=== PATIENT | female | born 1945 | race Caucasian/White ===

== ENCOUNTER 2017-01-10 11:23 | Inpatient (IN) | payer OTHER, MEDICARE ==
--- NOTE | ~2017-01-10 | OR ---
Unit #: [id number] #: [id number] Patient: SELENA AZUL [id number] [address] [place], [place] [address] [id number] MR#: [id number] NAME: SELENA AZUL ROOM: [facility] Date of Procedure: 01/10/2017 Admission Date: 01/10/2017 Surgeon: Carolina Rivera M.D. : 1945 Attending Physician: Carolina Rivera M.D. Primary Care Physician: Jami Mueller A.P.R.N. OPERATIVE REPORT PREOPERATIVE DIAGNOSIS Left ankle degenerative arthritis. POSTOPERATIVE DIAGNOSIS Left ankle degenerative arthritis. PROCEDURE PERFORMED Left total ankle arthroplasty (64073). CERTIFIED GENETIC COUNSELOR MD Barak. ANESTHESIA Popliteal saphenous block and general. INDICATIONS FOR SURGERY The patient is a 71-year-old female with end-stage left ankle arthritis unresponsive to conservative care. She is admitted for elective total ankle replacement. The risks and benefits of fusion versus replacement have been discussed. She elects to proceed with ankle replacement. DESCRIPTION OF PROCEDURE The patient underwent left popliteal saphenous block. She was taken to the operating room, and placed into the supine position. General anesthetic was induced. The left ankle was identified as the correct operative location during the time-out procedure. The IV antibiotic protocol was followed. The left leg was then prepped and draped in the usual sterile fashion. The leg was exsanguinated and the thigh tourniquet inflated to 300 mmHg. An anterior longitudinal incision measuring 12 cm was made over the ankle. The subcutaneous tissue was carefully divided. The superficial peroneal nerve was identified and preserved. The extensor retinaculum was opened longitudinally. The interval between the extensor hallucis longus tendon and anterior tibial tendon was opened and the neurovascular bundle was retracted laterally. The joint was exposed with subperiosteal dissection. The power osteotome was then used to remove the large anterior distal tibial spur. The Michael Talaris total ankle replacement system was used for total ankle arthroplasty. The tibial alignment guide was pinned to the tibial tuberosity aligned with the tibial shaft and then pinned to the distal tibia. An 8 mm resection was set, rotation was set. The tibia and talus were both sized at a size 0. The medial lateral orientation of the Unit #: [id number] #: [id number] Patient: SLEENA AZUL cutting block was then adjusted under C-arm fluoroscopic control. The #0 tibial cutting block was applied. The three drill holes were placed medially and laterally and the tibial cut was made. The anterior half of the cut tibia was then removed in a piecemeal fashion. The talar pin setting guide was then used to place the pin in the talar neck. The posterior talar cutting guide was applied and pinned into place. The posterior talar cut was made. The remainder of the posterior cut tibial bone was then removed. The anterior talar cutting guide was then applied and pinned into place. The anterior talar neck was reamed. Finally, the lateral talar cutting guide was applied and pinned into place. Position was checked with C-arm fluoroscopy. The Mota saw was used and the lateral talar cut was made. The #0 talar trial fit appropriately. A trial reduction was then performed with an 8 mm thick spacer and 0 tibial trial. The three drill holes were placed in the distal tibia. These were then connected with a small chisel and a rasp. The wound was copiously irrigated. The final #0 talar implant was impacted into place. The 8 mm poly was then fixed to the #0 tibial implant. The tibial implant was impacted into place. Excellent fitting of the prosthesis was confirmed with C-arm fluoroscopy. There was no evidence of medial or lateral instability. Care was taken to ensure that the medial and lateral gutters were cleared of all osteophytes with a rongeur. A 3-minute dilute Betadine wash was then applied to the ankle. This was then lavaged out with normal saline. Tourniquet was released with a total tourniquet time of 55 minutes. The ankle joint capsule was closed with interrupted 2-0 Vicryl [id number]-[id number] sutures. The extensor retinaculum was closed with 2-0 Vicryl oadvin-gp-rsmmz sutures, subcutaneous tissue was closed with 3-0 Vicryl, and the skin was closed with 3-0 nylon horizontal mattress sutures. Xeroform gauze, dressing, sponges, Webril, and a posterior fiberglass splint were applied. The patient was then transported to the recovery room in stable condition. ESTIMATED BLOOD LOSS Minimal. COMPLICATIONS None. SPECIMENS None. TOURNIQUET TIME 55 minutes. Dictated by.Myke HoffmannH/martell TD: 01/10/2017 18:46 JOB #: [id number] Unit #: [id number] #: [id number] Patient: SELENA AZUL OPERATIVE REPORT X Nan Rivera MD X PROCEDURE OPERATIVE NOTE
--- NOTE | ~2017-01-10 | DS ---
Unit #: [id number] #: [id number] Patient: SELENA AZUL [id number] [address] [address] [id number] I MR#: [id number] NAME: SELENA AZUL ROOM: 455 Age: 71 Sex: F Admission Date: 01/10/2017 : 1945 Discharge Date: 01/12/2017 Attending Physician: Carolina Rivera M.D. Primary Care Physician: Jami Mueller A.P.R.N. DISCHARGE SUMMARY CHIEF COMPLAINT Left ankle pain. HISTORY OF PRESENT ILLNESS The patient is a 71-year-old female with endstage left ankle arthritis, unresponsive to conservative care. She was admitted for left total ankle arthroplasty. HOSPITAL COURSE The patient was taken to the operating room on the date of admission, where she underwent left total ankle arthroplasty without complication. She had a stable postoperative course. She was seen by physical therapy on a daily basis and instructed on how to remain nonweightbearing on the affected side. DVT prophylaxis was achieved with Xarelto. Dressing was changed on the second postoperative day and the wound is healing well. 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 She is ready for discharge on the second postoperative day. FINAL DIAGNOSES Left ankle arthritis. OPERATION PERFORMED Left total ankle arthroplasty on 01/09/2017. DISPOSITION/RECOMMENDATIONS 1. The patient is discharged home. 2. She is to keep the dressing clean, dry and intact. 3. Continue ice and elevation. 4. She will be nonweightbearing for two weeks. DISCHARGE MEDICATIONS 1. Home medications. 2. Xarelto 10 mg p.o. daily for 2 weeks. 3. Percocet 5/325 mg 1-2 p.o. q.4-6 h. p.r.n. pain, dispensed 40. FOLLOWUP Follow up in my office in 10-14 days for dressing change, stitch removal, application of a CAM boot. She can start weightbearing at that time. Dictated by.Marce Rivera M.D. Unit #: [id number] #: [id number] Patient: SELENA AZUL RTSeveriano/gz TD: 01/13/2017 09:01 JOB #: [id number] DISCHARGE SUMMARY X Nan Rivera MD DISCHARGE SUMMARY
--- NOTE | ~2017-01-10 | HP ---
Unit #: [id number] #: [id number] Patient: SELENA AZUL [id number] [address] [address] [id number] O MR#: [id number] NAME: SELENA AZUL ROOM: Age: Sex: F Admission Date: 01/10/2017 : 1945 Attending Physician: Carolina Rivera M.D. Primary Care Physician: Jami Mueller A.P.R.N. HISTORY AND PHYSICAL DATE OF ANTICIPATED ADMISSION/PROCEDURE January 10, 2017 CHIEF COMPLAINT Left ankle pain. HISTORY OF PRESENT ILLNESS The patient is a 71-year-old female with end-stage left ankle arthritis unresponsive to conservative care. She is admitted for ankle replacement. The risks and benefits of fusion versus replacement have been discussed. PAST MEDICAL HISTORY 1. Obesity. 2. Anemia. 3. Midfoot arthritis. 4. Asthma. 5. Hypertension. 6. Esophageal reflux. 7. Hyperlipidemia. 8. Hypothyroidism. 9. Knee arthritis. 10. Uterine cancer. 11. Allergic rhinitis. 12. Hypercholesterolemia. 13. Breast cancer. PAST SURGICAL HISTORY 1. Breast lumpectomy. 2. Oophorectomy. 3. Sinus surgery. 4. Total abdominal hysterectomy. CURRENT MEDICATIONS 1. Anastrozole. 2. Hydrochlorothiazide. 3. Levothyroxine. 4. Losartan. 5. Meloxicam. 6. Metoprolol. 7. Prilosec. 8. Symbicort. ALLERGIES None. Unit #: [id number] #: [id number] Patient: SELENA AZUL FAMILY HISTORY Breast cancer, arthritis, hypertension, asthma, COPD, cardiac disease. SOCIAL HISTORY Patient is a social user of alcohol. She is a former smoker with a 40 pack-year history. PHYSICAL EXAMINATION GENERAL: This is an obese female in no acute distress. HEENT: Pharynx is clear. NECK: Supple without masses. HEART: Regular sinus rhythm without murmurs or gallops. LUNGS: Clear. ABDOMEN: Soft and nontender without masses or organomegaly. EXTREMITIES: Evaluation of the left ankle demonstrates a normal arch. The hindfoot is in 5 degrees of valgus. Left ankle dorsiflexion zero and plantar flexion 30. Subtalar inversion is 5 degrees and eversion is 10 degrees. The patient has palpable midfoot arthritis. Pulses are palpated. Sensation is normal. Motor exam is normal. The patient is maximally tender over the anterior aspect of the tibiotalar joint. DIAGNOSTIC STUDIES IMAGING: Standing x-rays of the left ankle show complete symmetrical joint space loss of the ankle joint. ADMITTING DIAGNOSIS Left ankle degenerative arthritis. PLAN The patient has failed conservative care. She is therefore admitted for left total ankle arthroplasty using the Michael Talaris implant. This procedure was described, along with the risks of bleeding, infection, nerve damage, need for further surgery in the future, prolonged recovery time, deep venous thrombosis, pulmonary embolism, anesthetic complications, wound healing problems, loosening of the prosthesis, infection of the prosthesis, need for multiple revision surgeries to include ankle fusion. She understands the above risks and agrees to proceed with the treatment plan. She reviewed the operative permit and signed it in our office. Dictated by Myke Dixon/carie TD: 01/09/2017 20:18 JOB #: [id number] HISTORY AND PHYSICAL X Nan Rivera MD X HISTORY AND PHYSICAL
[~2017-01-10 11:23] MED LIST: ANASTROZOLE1 MG PO; B-12500 MCG PO; HYDROCHLOROTHIA25 MG PO; LOSARTAN POTASS25 MG PO; MELOXICAM15 MG PO; METOPROLOL SUCC50 MG PO; SYMBICORT INH; SYNTHROID125 PO; TYLENOL EXTRA500 M1; ZANTAC150 M1 PO
[2017-01-11 04:20] LABS: HEMATOCRIT 32.6 % (35.0-45.0); HEMOGLOBIN 10.7 gm/dL (12.0-16.0)
[2017-01-12 03:51] LABS: HEMATOCRIT 31.4 % (35.0-45.0); HEMOGLOBIN 10.2 gm/dL (12.0-16.0)
[2017-01-12] MEDS ORDERED: XARELTO10 MG PO (11:39)
[2017-01-12] MEDS ORDERED: PERCOCET5/325 PO (11:41)
[2017-06-13] MEDS ORDERED: LOSARTAN POTASS25 MG PO (08:36)
[2017-06-13] MEDS ORDERED: TOPROL XL 50 MG50 MG PO (08:36)
[2017-06-13] MEDS ORDERED: HYDROCHLOROTHIA25 MG PO (08:37)
[2017-06-13] MEDS ORDERED: MELOXICAM15 MG PO (08:39)
[2017-06-13] MEDS ORDERED: LEVO-T125 MCG PO (08:39)
[2017-06-13] MEDS ORDERED: SYMBICORT INH (08:40)
[2017-06-13] MEDS ORDERED: ARIMIDEX1 MG PO (08:41)
[2017-06-13] MEDS ORDERED: TYLENOL325 M1 PO (08:41)
[2017-06-13] MEDS ORDERED: VITAMIN B125000 MCG PO (08:42)
[2017-06-13] MEDS ORDERED: ACID REDUCER150 MG PO (08:42)
[2017-06-13] MEDS ORDERED: FISH OIL 1,001000 M2 PO (08:43)
== END 2017-01-12 12:20 | disposition home or self-care (01) | DRG 470 ==
LOC: CSUR 11:23 → CPACUOF 18:19 → C4B 19:03
PROVIDERS: Orthopaedic Surgery
PROC: 0SRG0JZ Replacement of Left Ankle Joint with Synthetic Substitute, Open Approach (ICD-10-PCS; principal; 2017-01-10 14:00)
DX: M19.072 Primary osteoarthritis, left ankle and foot (principal); D64.9 Anemia, unspecified; E03.9 Hypothyroidism, unspecified; K21.9 Gastro-esophageal reflux disease without esophagitis; E66.9 Obesity, unspecified; Z87.891 Personal history of nicotine dependence; Z85.3 Personal history of malignant neoplasm of breast; Z85.42 Personal history of malignant neoplasm of other parts of uterus; E78.00 Pure hypercholesterolemia, unspecified; Z90.710 Acquired absence of both cervix and uterus; Z80.3 Family history of malignant neoplasm of breast; Z82.49 Family history of ischemic heart disease and other diseases of the circulatory system; Z82.5 Family history of asthma and other chronic lower respiratory diseases; Z82.61 Family history of arthritis
CPT/HCPCS: 85014; 85018; 94640; 94664; 94760; 97116; 97163; 97530; C1776; G8978-GP; G8979-GP; G8980-GP; J0330; J0690; J1100; J2250; J2270; J2405; J2710; J2795; J3010

== ENCOUNTER → 2017-06-13 | Outpatient (CLI) | payer OTHER ==
[~2017-06-13] MED LIST changes: +ACID REDUCER150 MG PO; +ARIMIDEX1 MG PO; +FISH OIL 1,001000 M2 PO; +LEVO-T125 MCG PO; +PERCOCET5/325 PO; +TOPROL XL 50 MG50 MG PO; +TYLENOL325 M1 PO; +VITAMIN B125000 MCG PO; +XARELTO10 MG PO
--- NOTE | ~2017-06-13 | EKG ---
PATIENT: SELENA AZUL UNIT #: [id number] Ventricular Rate: 68 BPM Atrial Rate: 68 BPM P-R Interval: 144 ms QRS Duration: 102 ms Q-T Interval: 376 ms QTC Calculation(Bezet): 399 ms P Frank[place]: 34 degrees Calculated R Frank[place]: -30 degrees Calculated T Frank[place]: 37 degrees Diagnosis Line: Normal sinus rhythm Diagnosis Line: Left axis deviation Diagnosis Line: Minimal voltage criteria for LVH, may be normal Diagnosis Line: variant Diagnosis Line: Nonspecific T wave abnormality Diagnosis Line: Abnormal ECG Diagnosis Line: When compared with ECG of 28-DEC-2016 10:55, Diagnosis Line: No significant change was found Diagnosis Line: Confirmed by ALLA PENA MD ([id number]) on 06/14/2017 Diagnosis Line: 7:34:46 PM INTERPRETING MD: BECKY ESTRADA
[2017-06-13 09:00] LABS: URINE APPEARANCE CLEAR; URINE BILIRUBIN NEG (NEG); URINE BLOOD NEG (NEG); URINE COLOR YELLOW; URINE GLUCOSE NEG (NEG); URINE KETONE NEG (NEG); URINE LEUKOCYTE ESTERASE 1+ (NEG); URINE NITRATE NEG (NEG); URINE PROTEIN NEG (NEG); URINE SPECIFIC GRAVITY 1.024 (1.003-1.035); URINE UROBILINOGEN 0.2 MG/DL (NEG)
[2017-06-13 09:03] LABS: CULTURE INDICATED? YES; URBCS1 AUWI 0-2 /[HPF] (0-2); URINE BACTERIA AUWI NEG (NEGATIVE); URINE SQUAMOUS EPITHELIAL CELL NONE SEEN /[HPF]
[2017-06-13 09:04] LABS: HEMATOCRIT 36.9 % (35.0-45.0); HEMOGLOBIN 12.4 gm/dL (12.0-16.0); MEAN CELL VOLUME 91.7 FL (83-96); MEAN CORPUSCULAR HGB CONC 33.7 g/dL (30-36); MEAN PLATELET VOLUME 7.8 FL (6.5-11.5); RED BLOOD COUNT 4.02 X10e (3.90-5.30); RED CELL DISTRIBUTION WIDTH 14.8 % (11.0-15.5); WHITE BLOOD COUNT 6.7 X10e3 (4.0-10.5)
[2017-06-13 09:08] LABS: URINE SOURCE CLEAN CATCH
[2017-06-13 09:21] LABS: BUN/CREATININE RATIO 24.61; CALCIUM SERUM 9.2 mg/dL (8.4-10.2); CREATININE SERUM 1.3 mg/dL (0.6-1.4); POTASSIUM 4.6 mmol/L (3.5-5.1)
== END | disposition home or self-care (01) ==
LOC: EDSTATUS 08:00 → CAMB 08:00
PROVIDERS: Orthopaedic Surgery
DX: Z01.818 Encounter for other preprocedural examination (principal); M17.11 Unilateral primary osteoarthritis, right knee
CPT/HCPCS: 36415; 80048; 81003; 85027; 87070; 87086; 93005

== ENCOUNTER 2017-06-27 08:12 | Inpatient (IN) | payer OTHER ==
[~2017-06-27] VITALS: Ht 175.3 cm; Wt 103.0 kg
--- NOTE | ~2017-06-27 | DS ---
Unit #: [id number] #: [id number] Patient: SELENA AZUL [id number] [address] [address] [id number] I MR#: [id number] NAME: SELENA AZUL. ROOM: 454 Age: 72 Sex: F Admission Date: 06/27/2017 : 1945 Discharge Date: 06/29/2017 Attending Physician: Carolina Rivera M.D. Primary Care Physician: Jami Mueller A.P.R.N. DISCHARGE SUMMARY CHIEF COMPLAINT Right knee pain. HISTORY OF PRESENT ILLNESS The patient is a 72-year-old female with ongoing right knee pain, unresponsive to conservative care. Radiographs show endstage arthritis of the medial compartment and patellofemoral joint. She has not responded to antiinflammatory medication and activity modification. She was admitted for total knee arthroplasty. HOSPITAL COURSE The patient was taken to the operating room on the day of admission, where she underwent right total knee arthroplasty using a posterior constrain Gerald Triathlon knee component. There were no operative complications. She had a stable postoperative course. Her hematocrit was 28.8% on the second postoperative day. Her drain was removed on that day. Wounds were healing well. Range of motion was improving. She was cleared by physical therapy for discharge. 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 DVT prophylaxis was achieved with Xarelto. FINAL DIAGNOSES Right knee arthritis. DISPOSITION/RECOMMENDATIONS 1. The patient is discharged home. She will have home physical therapy and occupational therapy at home. She can weight bear as tolerated using a walker. 2. Follow up in my office in 10-14 days for stable removal. 3. Discharge medications remain the same as her home medications with the addition of Percocet 5/325 mg 1 or 2 p.o. q.4-6 h. p.r.n. pain, dispensed 50, and Xarelto 10 mg p.o. daily for 12 days. Dictated byMyke Thompson/monisha TD: 06/30/2017 09:41 JOB #: [id number] Unit #: [id number] #: [id number] Patient: GADBERRY,SELENA H DISCHARGE SUMMARY Page 1 of 1 X Nan Rivera MD X DISCHARGE SUMMARY
--- NOTE | ~2017-06-27 | CR169 ---
[facility] A Service of [facility] RADIOLOGY TEXT RESULTS PATIENT: SELENA AZUL LOCATION: [place] [address] : [birth year] UNIT #: [id number] AGE: [address]: Nan Rivera MD SEX: F ORDER DR: [id number] [facility] [address] [facility]. [place], [place] [address] [id number] I MR#: [id number] Acc #: [id number] NAME: SELENA AZUL. : 1945 SEX: F STUDY DATE/TIME: 06/27/2017 12:52 UNIT: [facility] ROOM: [facility] STUDY DESCRIPTION: CR Knee 2 Views Lt Attending Physician: Carolina Rivera M.D. Ordering Physician: Carolina Rivera M.D. Primary Care Physician: Jami Mueller A.P.R.N. MEDICAL IMAGING REPORT This report is preliminary unless electronic signature is present EXAM Two-view left knee. HISTORY Postop total knee arthroplasty, right knee. COMPARISON 03/17/2016 FINDINGS Two views of the right knee demonstrates postoperative changes of right total knee arthroplasty with femoral and tibial components in expected position and alignment. There has been a patellar resurfacing procedure. There is a single suprapatellar drain. Anterior skin cordelia noted. Mild generalized soft tissue swelling noted. There is a small amount of intraarticular gas consistent with a recent operative intervention. IMPRESSION Status post right total knee arthroplasty. Normal expected postoperative findings. Dictated by... Bello Nielson M.D. THIS IS AN ELECTRONICALLY VERIFIED REPORT Bello Nielson M.D. at 06/28/2017 5:14 PM JOSHUA/guillermo TD: 06/27/2017 17:03 JOB #: [id number] [facility] A Service of [facility] RADIOLOGY TEXT RESULTS PATIENT: SELENA AZUL LOCATION: [place] [address] : [birth year] UNIT #: [id number] AGE: [address]: Nan Rivera MD SEX: F ORDER DR: MEDICAL IMAGING REPORT Page 1 of 1 COPY
--- NOTE | ~2017-06-27 | OR ---
Unit #: [id number] #: [id number] Patient: SELENA AZUL [id number] [address] [place], [place] [address] [id number] I MR#: [id number] NAME: SELENA AZUL. ROOM: [facility] Date of Procedure: 06/27/2017 Admission Date: 06/27/2017 Surgeon: Carolina Rivera M.D. : 1945 Attending Physician: Carolina Rivera M.D. Primary Care Physician: Jami Muelelr A.P.R.N. OPERATIVE REPORT PREOPERATIVE DIAGNOSIS Right knee degenerative arthritis. POSTOPERATIVE DIAGNOSIS Right knee degenerative arthritis. PROCEDURE PERFORMED Right total knee arthroplasty. ASSISTANTS Peter and Jessica. ANESTHESIA General. INDICATIONS FOR SURGERY The patient is a 70-year-old female with end-stage right knee arthritis unresponsive to conservative care. Radiographs show znce-po-yyes apposition of the medial compartment with significant varus deformity. She has failed bracing, injections, and medication, as well as physical therapy. She is therefore to undergo knee replacement. DESCRIPTION OF PROCEDURE The patient was taken to the operating room and placed in supine position and general anesthetic was induced. The right knee was identified as the correct operative extremity during the time-out procedure. The IV antibiotic protocol was followed. The right leg was then prepped and draped in the usual sterile fashion. The leg was exsanguinated and the thigh tourniquet inflated to 300 mmHg. An anterior longitudinal incision was made measuring 15 cm over the knee. The subcutaneous tissue was carefully divided. The knee was opened through a medial parapatellar approach. The anterior fat pad was excised. The medial collateral ligament was released subperiosteally back to the midportion of the medial tibial plateau. A drill was used to open the femoral canal. The femoral alignment guide was placed. The distal femoral cutting guide was then pinned into place. 8 mm of distal femur were removed at a 5 degree valgus cut. The femur was sized at a #4. The #4 cutting block was pinned into place and the anterior-posterior and chamfer cuts were made. The notch cutting block was then pinned into place and the notch cut was made. The #4 trial femoral component fit appropriately. Unit #: [id number] #: [id number] Patient: SELENA AZUL Attention was directed to the tibia. The medial and lateral menisci were excised. A drill hole was placed in the center of the tibial plateau. The intramedullary tibial guide was placed. The tibial cutting guide was adjusted to the 2 mm of bone will be taken off the more affected medial side. The tibial cut was made and the bone was removed. Insufficient bone was removed medially, therefore an additional 2 mm of bone was taken. The tibia was sized at a #5. The #5 trial tibial component and #4 trial femoral components were then placed and the tibial component was allowed to find its correct position. It was then pinned into place. The keel punch was used. The patella was measured at 24 mm in thickness. A freehand patellar cut was made removing 10 mm thickness of bone. The 32 mm diameter asymmetric patellar trial was placed and the 3 drill holes were placed in the patella. All bony surfaces were then pulse lavaged and dried. The #5 tibial component was cemented into place. The #4 femoral component was impacted into place. The 32 mm asymmetric patella was then cemented into place. All excess cement was removed. The knee was then allowed to rest in full extension while the cement dried. There was some instability to varus stress, therefore 11 mm spacer was placed and was found to afford better stability. The knee achieved full extension and full flexion. The knee was stable to varus and valgus stress in both extension and 30 degrees of flexion. The final 11 mm diameter polyethylene tibial tray was then impacted into place. The knee was stable again in flexion and extension as well as varus and valgus. Patellar tracking was excellent and a lateral release was not required. A 3-minute dilute Betadine wash was then applied to the knee. The knee was then lavaged with normal saline. A medium Hemovac drain was placed. It should be noted that throughout the case, prior to implantation of components, the medial and lateral knee capsules as well as the posterior knee capsule were injected with a mixture of epinephrine, ropivacaine, ketorolac, and clonidine. Prior to closure, the joint capsule was also injected with a mixture of medication. The joint capsule was then meticulously closed with 0 Vicryl cppkig-go-mrcog sutures. Subcutaneous tissue was closed with 2-0 Vicryl. Skin was closed with skin cordelia. Xeroform gauze, dressing, sponges, Webril, Brandon wrap, and knee immobilizer were placed. The patient was then transported to the recovery room in stable condition. ESTIMATED BLOOD LOSS Minimal. COMPLICATIONS None. SPECIMENS None. TOURNIQUET TIME 90 minutes. Unit #: [id number] #: [id number] Patient: SELENA AZUL Dictated by.Myke Hoffmann/martell TD: 06/27/2017 13:34 JOB #: [id number] OPERATIVE REPORT Page 1 of 1 X Nan Rivera MD X PROCEDURE OPERATIVE NOTE
--- NOTE | ~2017-06-27 | HP ---
Unit #: [id number] #: [id number] Patient: SELENA AZUL [id number] [address] [address] [id number] MR#: [id number] NAME: SELENA AZUL. ROOM: Age: Sex: F Admission Date: 06/27/2017 : 1945 Attending Physician: Carolina Rivera M.D. Primary Care Physician: Jami Mueller A.P.R.N. HISTORY AND PHYSICAL DATE OF ANTICIPATED ADMISSION/PROCEDURE June 27, 2017 CHIEF COMPLAINT Right knee pain. HISTORY OF PRESENT ILLNESS The patient is a 72-year-old female with ongoing right knee pain unresponsive to conservative care. Radiographs show end-stage arthritis of the medial compartment and patellofemoral joint. She has tried antiinflammatory medication and activity modification. She is therefore admitted for right total knee arthroplasty. PAST MEDICAL HISTORY 1. Anemia. 2. Allergic rhinitis. 3. Esophageal reflux disease. 4. Hypercholesterolemia. 5. Hyperlipidemia. 6. Hypertension. 7. Hypothyroidism. 8. Osteoarthritis. 9. Breast cancer. 10. Uterine cancer. 11. Left ankle arthritis. PAST SURGICAL HISTORY 1. Breast lumpectomy. 2. Total abdominal hysterectomy and oophorectomy. 3. Sinus surgery. 4. Left total ankle arthroplasty. HOME MEDICATIONS 1. Anastrozole. 2. Hydrochlorothiazide. 3. Levothyroxine. 4. Losartan. 5. Meloxicam. 6. Metoprolol. 7. Prilosec. 8. Symbicort. ALLERGIES None. Unit #: [id number] #: [id number] Patient: SELENA AZUL SOCIAL HISTORY The patient is a social drinker. She is a former smoker with 40 pack-year history. She no longer smokes. FAMILY HISTORY Breast cancer, arthritis, hypertension, asthma, COPD, and coronary artery disease. REVIEW OF SYSTEMS Unremarkable. PHYSICAL EXAMINATION GENERAL: This is a well-developed, well-nourished female in no acute distress. HEENT: Pharynx is clear. NECK: Supple without masses. HEART: Regular sinus rhythm without murmurs or gallops. LUNGS: Clear. ABDOMEN: Soft and nontender without masses or organomegaly. EXTREMITIES: Evaluation of the right knee shows 5 degrees of genu varum. Range of motion is -5 degrees to 115 degrees. The patient is maximally tender over the anteromedial and medial joint lines. The medial and lateral collateral ligaments are stable. Everton test is negative. Posterior tibial sag test is negative. She has a positive patellar compression test. DIAGNOSTIC STUDIES IMAGING: Standing x-rays of the right knee show end-stage medial compartment arthritis with uwkq-pl-dzrx opposition and 8 degrees of genu varum. ADMITTING DIAGNOSIS Right knee end-stage medial compartment arthritis. PLAN The patient has failed conservative care. She is admitted for elective right total knee arthroplasty. This procedure was described along with the risks of bleeding, infection, nerve damage, need for further surgery in the future, prolonged recovery time, deep venous thrombosis, pulmonary embolism, anesthetic complications, loosening of the prosthesis, infection of the prosthesis, and need for multiple revision surgeries in the future. She understands the above risks and agrees to proceed. Dictated by Myke Dixon/carie TD: 06/26/2017 21:54 JOB #: [id number] Unit #: [id number] #: [id number] Patient: SELENA AZUL HISTORY AND PHYSICAL Page 1 of 1 X Nan Rivera MD X HISTORY AND PHYSICAL
[2017-06-27 13:13] LABS: HEMATOCRIT 33.6 % (35.0-45.0); HEMOGLOBIN 11.4 gm/dL (12.0-16.0)
[2017-06-28 03:29] LABS: BASOPHIL# 0.1 X10e3 (0-0.3); BASOPHIL% 0.8 % (0-2.5); HEMATOCRIT 29.1 % (35.0-45.0); HEMOGLOBIN 9.6 gm/dL (12.0-16.0); LYMPHOCYTE# 0.8 X10e3 (1.0-3.5); LYMPHOCYTE% 8.2 % (17.0-45.0); MEAN CELL VOLUME 93.4 FL (83-96); MEAN CORPUSCULAR HEMOGLOBIN 30.8 PG (28-34); MEAN PLATELET VOLUME 7.7 FL (6.5-11.5); MONOCYTE# 0.8 X10e3 (0-1.0); MONOCYTE% 8.2 % (3.0-12.0); NEUTROPHIL# 8.5 X10e3 (1.5-7.1); NEUTROPHIL% 82.8 % (40-75); PLATELET COUNT 198 X10e3 (140-420); RED BLOOD COUNT 3.11 X10e (3.90-5.30); RED CELL DISTRIBUTION WIDTH 14.7 % (11.0-15.5); WHITE BLOOD COUNT 10.3 X10e3 (4.0-10.5)
[2017-06-28 03:30] LABS: DIFF IND NO
[2017-06-29 03:46] LABS: BASOPHIL% 0.5 % (0-2.5); EOSINOPHIL# 0.1 X10e3 (0-0.7); EOSINOPHIL% 1.3 % (0.0-7.0); HEMATOCRIT 28.8 % (35.0-45.0); HEMOGLOBIN 9.8 gm/dL (12.0-16.0); LYMPHOCYTE# 1.3 X10e3 (1.0-3.5); LYMPHOCYTE% 14.7 % (17.0-45.0); MEAN CELL VOLUME 92.7 FL (83-96); MEAN CORPUSCULAR HEMOGLOBIN 31.4 PG (28-34); MEAN CORPUSCULAR HGB CONC 33.9 g/dL (30-36); MEAN PLATELET VOLUME 7.8 FL (6.5-11.5); MONOCYTE# 1.3 X10e3 (0-1.0); MONOCYTE% 14.5 % (3.0-12.0); PLATELET COUNT 192 X10e3 (140-420); RED CELL DISTRIBUTION WIDTH 14.6 % (11.0-15.5); WHITE BLOOD COUNT 8.7 X10e3 (4.0-10.5)
[2017-06-29 03:48] LABS: DIFF IND NO
[2017-06-29] MEDS ORDERED: XARELTO10 MG PO (08:50)
[2017-06-29] MEDS ORDERED: PERCOCET5/325 PO (08:51)
== END 2017-06-29 12:39 | disposition home health service (06) | DRG 470 ==
LOC: CSUR 08:12 → CPACUOF 08:47 → CSUR 08:47 → CPACUOF 12:00 → C4B 14:01
PROVIDERS: Orthopaedic Surgery
PROC: 0SRC0J9 Replacement of Right Knee Joint with Synthetic Substitute, Cemented, Open Approach (ICD-10-PCS; principal; 2017-06-27 10:00)
DX: M17.11 Unilateral primary osteoarthritis, right knee (principal); D64.9 Anemia, unspecified; I10 Essential (primary) hypertension; E78.00 Pure hypercholesterolemia, unspecified; E03.9 Hypothyroidism, unspecified; Z85.3 Personal history of malignant neoplasm of breast; Z85.42 Personal history of malignant neoplasm of other parts of uterus; Z90.710 Acquired absence of both cervix and uterus; Z96.642 Presence of left artificial hip joint; Z87.891 Personal history of nicotine dependence; K21.9 Gastro-esophageal reflux disease without esophagitis
CPT/HCPCS: 73560; 85014; 85018; 85025; 94760; 97110; 97116; 97161; 97165; 97530; C1776; G8978-GP; G8979-GP; G8980-GP; G8987-GO; G8988-GO; J0131; J0171; J0690; J0735; J1100; J1170; J1885; J2270; J2405; J2795; J3010